=== PATIENT | female | born 1975 | race Two or more races ===

== ENCOUNTER 2025-03-30 10:50 | Day surgery (SDC) | payer OTHER ==
[2025-03-26 08:14] VITALS: BP 119/80
[~2025-03-30] VITALS: Ht 162.6 cm; Wt 68.0 kg
[~2025-03-30 10:50] MED LIST: CEFDINIR300 MG PO; FOLIC ACID1 MG PO; PRE PROTEIN 2030 ML PO; PROTONIX40 MG PO; ROBITUSSIN100 MG/53 PO; Relafen PO; SYNTHROID50 MCG PO; Synthroid 100MCG TABLET PO; VITAMIN B-121000 MCG PO
[2025-03-30] MEDS ORDERED: LIDOCAINE HCL 1%/EPINEPHRINE 20ML VIAL IJ ONE (17:15)
[2025-03-30] MEDS ORDERED: CEFAZOLIN SODIUM 1,000 MG VIAL IV ONE (17:15)
[2025-03-30] MEDS ORDERED: SUGAMMADEX SODIUM 200 MG/2 ML VIAL IV ONE (19:15)
[2025-03-30] MEDS ORDERED: POVIDONE-IODINE 118 ML BOTT TOP ONE (19:15)
[2025-03-30] MEDS ORDERED: MORPHINE SULFATE 4 MG/ML VIAL IV ONE ×2 (19:40→20:10)
[2025-03-30] MEDS ORDERED: KETOROLAC TROMETHAMINE 60 MG VIAL IM ONE (20:00)
== END 2025-03-30 21:10 | disposition home or self-care (01) ==
LOC: CIR.AMB 10:50
PROVIDERS: ATTEND Specialist
DX: N83.8 Other noninflammatory disorders of ovary, fallopian tube and broad ligament (principal); N93.8 Other specified abnormal uterine and vaginal bleeding; Z30.2 Encounter for sterilization; T19.3XXA Foreign body in uterus, initial encounter

== ENCOUNTER 2025-04-02 18:12 | Emergency (ER) | payer OTHER ==
[~2025-04-02] VITALS: Ht 162.6 cm; Wt 67.1 kg
[2025-04-02 18:41] VITALS: BP 143/93; O2SAT 100
[2025-04-02] MEDS ORDERED: TRAMADOL HCL E100 M1 PO (18:57)
[2025-04-02] MEDS ORDERED: ENOXAPARIN SODIUM 60 MG/0.6 ML SYRINGE SUBCUTANEO ONE (19:00)
== END 2025-04-02 19:07 | disposition home or self-care (01) ==
LOC: ER 18:20
DX: M79.605 Pain in left leg (principal); E03.8 Other specified hypothyroidism; I82.409 Acute embolism and thrombosis of unspecified deep veins of unspecified lower extremity

== ENCOUNTER 2025-04-03 08:14 | Emergency (ER) | payer OTHER ==
[~2025-04-03] VITALS: Ht 162.6 cm; Wt 67.6 kg
[~2025-04-03 08:14] MED LIST changes: +TRAMADOL HCL E100 M1 PO
== END 2025-04-03 11:45 | disposition home or self-care (01) ==
LOC: ER 08:14
DX: I80.252 Phlebitis and thrombophlebitis of left calf muscular vein (principal); I86.8 Varicose veins of other specified sites; E03.9 Hypothyroidism, unspecified